=== PATIENT | male | born 1985 | race African-American/Black ===

== ENCOUNTER 2023-10-27 10:57 | Emergency (ER) | payer MEDICAID, SELFPAY ==
--- NOTE | 2023-10-27 11:11 | ED.GENADULT ---
HPI - General Adult General Chief complaint: Recheck/Abnormal Lab/Rx Stated complaint: section 21 Time Seen by Provider: 10/27/23 11:06 Source: patient, EMS and other ([facility] employee) Mode of arrival: EMS Limitations: no limitations History of Present Illness HPI narrative: 38 year-old male presents to the emergency department history of major depressive disorderwith psychotic features, paranoid psychosis, schizoaffective disorder tuberculosis, HIV, hepatitis a, B and C. Presenting to the emergency department with elevated lithium levels. He states he feels fine however he was told to come in to be evaluated. Denies chest pain, shortness of breath, fevers, chills, nausea, vomiting abdominal pain, headache, vision changes, dizziness, weakness, hallucinations, suicidal or homicidal ideation Related Data Allergies Allergy/AdvReac Type Severity Reaction Status Date / Time haloperidol [From Haldol] Allergy Severe Difficulty Verified 10/27/23 11:15 Swallowing risperidone AdvReac Mild Rash Verified 10/27/23 11:13 Review of Systems Review of Systems: Yes all other systems are reviewed and are negative [facility] Past Medical History Attestation statement: The following information was validated with the patient. Source: old records reviewed and nursing notes reviewed Social History Social History Unable to assess alcohol history related to: Unknown Alcohol intake: never Smoked in Last 30 Days: No Use of substances other than those prescribed or required for medical reasons: No Advance Directives: No Physical Exam ED Vital Signs: Vital Signs - 24 hr 10/27/23 11:15 Temperature 98.0 F Pulse Rate 73 Respiratory Rate 16 Blood Pressure 129/77 Pulse Oximetry 96 Oxygen Delivery Method Room Air BMI result Body Mass Index 31.3 vss Appearance: Alert.? Oriented X3.? No acute distress.? Head: Normocephalic, atraumatic, no step-offs or deformities Eyes: Pupils equal, round and reactive to light.? CVS: Normal heart rate and rhythm.? Pulses normal.? Respiratory: No respiratory distress.? Breath sounds normal.? Abdomen: Soft and nontender.? Skin: Skin warm and dry.? Normal skin color.? Normal skin turgor.? Extremities: No lower extremity edema.? No calf ttp. 5/5 strength to bilateral upper and lower extremities Neuro: Oriented X 3.? No motor deficit.? No sensory deficit. CN 2-12 intact Course Reevaluation(s) Reevaluation #1: Spoke to Dr. Kaplan from [facility]. He has a hx of aggressive behavior and outbursts on a section 18 (a) If released should be sent back to [facility]. If admitted [employer] needs to be informed and the [facility] office is to be involved and they will staff the detail. While in the ED [facility] will staff. He has had 3 dose of lithium 1200mg in the am on 3 separate days. This abnormal lab value 1.8 was drawn on the . They can be reached at [facility] [phone] Time: 11:40 Reevaluation #2: CBC unremarkable. Chemistry no acute findings requiring intervention. [place] level 1.20. Discussed this case with Dr. Urbina who recommends discharge back to [facility]. Time: 12:08 Reevaluation #3: Spoke with psychiatrist director radiation oncology Dr. Nunes who agrees ok [facility] last dose of lithium this AM 0848 per [facility]. Educated patient on diagnosis and treatment plan, answered all question, patient verbalizes understanding. At this time patient will be discharged home, advised to return with new or worsening symptoms. Educated on worrisome signs and symptoms and when to return. At this time I feel comfortable discharge home. Time: 12:51 Medical Decision Making Medical Decision Making [facility] Narrative: 38-year-old male presents with elevated lithium. Asymptomatic. No medical complaints. Coming from [place]. Physical exam benign. Patient accompanied by [facility] employed & security 1 on 1 at the bedside History and physical exam concerning for abnormal lithium level. Unlikely metabolic derangements. No sings of Plan labs, lithium level. Differential Diagnosis Differential Diagnoses: The differential diagnosis associated with the presentation includes History and physical exam concerning for abnormal lithium level. Unlikely metabolic derangements. No sings of Admission/Observation Consideration of admission/observation: Escalation of care including admission/observation considered Unlikely Lab Data [facility] Lab Attestation statement: I reviewed the patient's lab results. 10/27/23 11:25 10/27/23 11:25 Labs: Lab Results 10/27/23 Range/Units 11:25 WBC 8.1 (4.8-10.8) X10*3/uL RBC 4.84 (4.60-5.80) X10*6/uL Hgb 14.1 (14.0-18.0) g/dl Hct 41.1 L (42.0-52.0) % MCV 84.9 (80.0-98.0) fL MCH 29.1 (27.0-33.0) pg MCHC 34.3 (31.0-36.0) g/dl RDW 12.6 (11.0-16.0) % Plt Count 230 (160-400) X10*3/uL MPV 9.0 L (9.4-12.4) fL Immature Gran % (Auto) 0.7 H (0.0-0.4) % Neut % (Auto) 72.1 (45-73) % Lymph % (Auto) 21.1 (20-40) % [place] % (Auto) 5.7 (2-11) % Eos % (Auto) 0.0 (0-4) % Baso % (Auto) 0.4 (0-2) % Lymph # (Auto) 1.7 (1.2-4.9) X10*3/uL [place] # (Auto) 0.5 (0.1-1.2) X10*3/uL Eos # (Auto) 0.0 (0.0-0.4) X10*3/uL Baso # (Auto) 0.0 (0.0-0.2) X10*3/uL Abs Immat Gran (auto) 0.06 H (0.00-0.03) X10*3/uL Absolute Neuts (auto) 5.9 (2.0-8.3) x10*3/uL Absolute Nucleated RBC 0.000 (0.0-0.012) X10*3/uL Nucleated RBC % (auto) 0.0 (0.0-0.2) /100WBC Sodium 138 (135-145) mmol/L Potassium 4.0 (3.3-5.1) mmol/L Chloride 106 (96-108) mmol/L Carbon Dioxide 25 (22-29) mmol/L Anion Gap 11 L (12-20) BUN 11 (9-16) mg/dL Creatinine 0.90 (0.5-1.4) mg/dL Estim Creat Clear Calc 117.2 Estimated GFR > 60 Random Glucose 87 (60-115) mg/dL Calcium 9.6 (8.4-10.2) mg/dL Total Bilirubin 0.3 (0.0-1.0) mg/dL AST 18 (5-37) U/L ALT 16 (0-40) U/L Alkaline Phosphatase 65 (39-117) U/L Total Protein 7.4 (6.5-8.0) g/dL Albumin 4.3 (3.5-5.0) g/dL [place] 1.20 (0.60-1.20) mmol/L Chronic Conditions Patient?s care impacted by: Other (pmhx schizoaffective d/o ) Social Determinants Patient?s care significantly limited by Social Determinants of Health including: Inadequate housing, Low income, Alcoholism and drug addiction in family, Problems related to primary support group, Unemployment, Problems related to employment and Other Social Determinant of Health Critical Care Time Critical Care Time Critical Care Time: Yes Total Critical Care Time: 35 Attestation: I attest to this time spent taking care of the patient, obtaining history, physical, reviewing labs, imaging, speaking to my attending, speaking to specialist. Discharge Plan Discharge Clinical Impression: Normal physical exam Patient Disposition: Xfer Other Transfer Details: Xfer to [facility] Additional Instructions: Take your medications as prescribed. If you were prescribed antibiotics today, it is important that you take your medication to their entirety, do not skip any doses, do not finish them early. Follow-up with your primary care provider this week. Return to the emergency department with new or worsening symptoms. Such as fevers, chills, chest pain, shortness of breath, nausea, vomiting, dizziness, headache, vision changes, lethargy In case of emergency call 911 Patient came in with concerns that he may have an elevated lithium level. [place] level today 1.2. Referrals: Physician,Unknown J [Physician] - 2 days Stand Alone Forms: Work/School Release
--- NOTE | 2023-10-27 11:13 | ECG_ITS ---
Test Reason : ABNORMAL LABS Blood Pressure : / mmHG Vent. Rate : 070 BPM Atrial Rate : 070 BPM P-R Int : 186 ms QRS Dur : 096 ms QT Int : 412 ms P-R-T Axes : 056 052 057 degrees QTc Int : 444 ms Normal sinus rhythm Brugada pattern, type 1 Abnormal ECG No previous ECGs available Referred By: Breanna Pal Electronically Signed By:GERARDO MARLOW MD
[2023-10-27 11:15] VITALS: BP 129/77; BP 158/84; PULSE 73; PULSE 75; RESP 16; TEMP 36.7; O2SAT 95; O2SAT 96; BMI 31.3
--- NOTE | 2023-10-27 11:25 | PC.NURSE ---
Pt to [facility] via EMS from [facility] for abnormal lab result - elevated lithium level. Hx of Schizoaffective disorder/Bipolar. Pt is in custody, dispute over who will provide security. Pt reports being incarcerated for the past 9 months, no cigarettes/EtOH since then. Pt presently denies all complaints at this time. VSS. RR even and unlabored bilaterally on RA. Facilitiy career services representative and [facility] security at bedside. EKG complete.
[2023-10-27 11:29] LABS: MANUAL DIFF FLAG NO
[2023-10-27 11:31] LABS: Basophils Percent Auto 0.4 % (0-2); Hematocrit 41.1 % (42.0-52.0); Hemoglobin 14.1 g/dl (14.0-18.0); Imm Gran Abs Auto 0.06 X10*3/uL (0.00-0.03); Imm Gran Pct Auto 0.7 % (0.0-0.4); Lymphocytes Absolute Auto 1.7 X10*3/uL (1.2-4.9); Lymphocytes Percent Auto 21.1 % (20-40); Mean Corpuscular HGB Conc 34.3 g/dl (31.0-36.0); Mean Corpuscular Hemoglobin 29.1 pg (27.0-33.0); Mean Corpuscular Volume 84.9 fL (80.0-98.0); Monocytes Absolute Auto 0.5 X10*3/uL (0.1-1.2); Monocytes Percent Auto 5.7 % (2-11); Neutrophils Absolute Auto 5.9 x10*3/uL (2.0-8.3); Neutrophils Percent Auto 72.1 % (45-73); Platelet Count 230 X10*3/uL (160-400); Red Blood Count 4.84 X10*6/uL (4.60-5.80); Red Cell Distribution Width 12.6 % (11.0-16.0); White Blood Count 8.1 X10*3/uL (4.8-10.8)
[2023-10-27 11:45] LABS: Alanine Aminotransferase 16 U/L (0-40); Albumin Level 4.3 g/dL (3.5-5.0); Alkaline Phosphatase 65 U/L (39-117); Anion Gap 11 (12-20); Aspartate Amino Transferase 18 U/L (5-37); Bilirubin Total 0.3 mg/dL (0.0-1.0); Blood Urea Nitrogen 11 mg/dL (9-16); Calcium 9.6 mg/dL (8.4-10.2); Carbon Dioxide 25 mmol/L (22-29); Chloride 106 mmol/L (96-108); Creatinine Clr Calc Pharmacy 117.2; Estimated Glomerular Filt Rate > 60; Glucose Random 87 mg/dL (60-115); Sodium 138 mmol/L (135-145); Total Protein 7.4 g/dL (6.5-8.0)
[2023-10-27 12:00] VITALS: BP 114/84; PULSE 64; RESP 16; TEMP 36.8; O2SAT 99
[2023-10-27 14:00] VITALS: BP 116/82; PULSE 68; RESP 14; TEMP 36.8; O2SAT 99
--- NOTE | 2023-10-27 14:08 | PC.NURSE ---
Pt continues to await transport back to facility; Provided with food & drink. Facility member remains at bedside. No definitive ETA - Mathieu states that they will arrive [place]. VSS. Pt A&Ox3. Calm & cooperative.
== END 2023-10-27 14:20 ==
PROVIDERS: Physician Assistant; Emergency Provider Emergency Medicine
DX: R88.8 Abnormal findings in other body fluids and substances (principal); R78.89 Finding of other specified substances, not normally found in blood; F25.9 Schizoaffective disorder, unspecified
CPT/HCPCS: 36415; 80053; 80178; 85025; 93005; 99283; 99284

== ENCOUNTER → 2023-10-27 11:13 | Outpatient (BNV) | payer SELFPAY | PROVIDERS: Emergency Provider Emergency Medicine; Visit Provider Internal Medicine Cardiovascular Disease | DX: R94.31 Abnormal electrocardiogram [ECG] [EKG] (principal) | CPT/HCPCS: 93010 ==